=== PATIENT | female | born 1950 | race Caucasian/White ===

== ENCOUNTER 2021-03-18 12:10 | Emergency (ER) | payer MEDICARE ==
[~2021-03-18] VITALS: Ht 170.2 cm; Wt 60.2 kg
--- NOTE | 2021-03-18 13:29 | NUR ---
TO [facility] FROM LOBBY
[2021-03-18 13:38] VITALS: BP 122/76
--- NOTE | 2021-03-18 14:11 | NUR ---
Patient given discharge instructions and they have confirmed that they understand the instructions. Patient wheeled to dc desk per pt request.
== END 2021-03-18 14:18 | disposition home or self-care (01) ==
LOC: ED 14:12
DX: S93.491A Sprain of other ligament of right ankle, initial encounter (principal); X50.0XXA Overexertion from strenuous movement or load, initial encounter; Y93.89 Activity, other specified; Y92.009 Unspecified place in unspecified non-institutional (private) residence as the place of occurrence of the external cause; Y99.8 Other external cause status
CPT/HCPCS: 29125; 99284

== ENCOUNTER 2021-07-27 09:59 | Outpatient (CLI) | payer MEDICARE | END 2021-07-27 23:59 | disposition home or self-care (01) | LOC: CFH 09:59 | PROVIDERS: ATTEND Psychiatry & Neurology Neurology | DX: I67.82 Cerebral ischemia (principal); R26.89 Other abnormalities of gait and mobility; R41.3 Other amnesia | CPT/HCPCS: 70450 ==